=== PATIENT | male | born 1940 | race Caucasian/White ===

== ENCOUNTER → 2018-09-02 | Outpatient (CLI) | payer MEDICARE ==
--- NOTE | 2018-09-02 14:58 | Diagnostic Imaging Report ---
CLINICAL INDICATION: Patient with neck pain, stiffness, headache and pain behind left ear and travels down left side of neck. EXAM: MRI of the cervical spine performed without IV contrast. Sequences include sagittal T1, sagittal T2, sagittal stir, and axial T2 sequences. COMPARISON: None. FINDINGS: Cervical spine has normal alignment with no fracture. There is normal craniocervical and anterior atlanto-odontoid alignment. Cervical spinal cord has normal anatomic appearance with no abnormal cord signal. Limited visualization of the posterior fossa is unremarkable. There is no paraspinal soft tissue abnormality. There are mildly hypertrophic spurs involving the cervical spine. C1-C2: There are small degenerative spurs involving the atlantoodontoid interval anteriorly. There is no significant central canal narrowing. C2-C3: There is a small posterior disc protrusion/herniation. There is no significant central spinal canal or neural foramen narrowing. C3-C4: There is minimal ligamentum flavum buckling, moderate left facet arthropathy and mild right facet arthropathy. There is no significant central canal narrowing. There is mild to moderate left neural foramen narrowing and no significant right neural foramen narrowing. C4-C5: There is mild diffuse disc bulge and mild facet arthropathy. There is a small right uncinate spur with at least moderate right neural foramen narrowing and no significant left neural foramen narrowing. There is no significant central canal narrowing. C5-C6: Grossly 1-2 mm of Grade 1 anterolisthesis of C5 on C6. There is moderate to severe right facet arthropathy/hypertrophy and mild left facet arthropathy. There is moderate to severe right neural foramen narrowing and no significant left neural foramen narrowing. There is no significant central canal narrowing. C6-C7: There is 2-3 mm of Grade 1 retrolisthesis of C6 on C7. There is a diffuse disc bulge with moderate loss of intervertebral disc height, bilateral facet arthropathy and ligamentum flavum buckling. There is mild central canal narrowing. There is severe right neural foramen narrowing and severe left neural foramen narrowing. C7-T1: This is moderate to severe right facet arthropathy/hypertrophy and moderate left facet arthropathy. There is mild bilateral neural foramen narrowing (right side more than the left). There is no significant central canal narrowing. 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 2: There is moderate to severe multilevel neural foramen narrowing. 3: There is Grade 1 anterolisthesis of C5 on C6 and Grade 1 retrolisthesis of C6 on C7. Dictated by: Dictated on workstation # [id number]
== END ==
LOC: RAD 13:55
PROVIDERS: ATTEND Nurse Practitioner Family
DX: M50.30 Other cervical disc degeneration, unspecified cervical region (principal); M48.02 Spinal stenosis, cervical region; M43.12 Spondylolisthesis, cervical region
CPT/HCPCS: 72141

== ENCOUNTER 2021-10-02 10:42 | Emergency (ER) | payer MEDICARE ==
[~2021-10-02] VITALS: Ht 175.2 cm; Wt 57.6 kg
[2021-10-02] MEDS ORDERED: MUPI1OIN6 TP (12:02)
--- NOTE | 2021-10-02 12:02 | ED Integumentary General ---
General Chief Complaint: Skin/Wound Problems Stated Complaint: WOUND CHECK Nursing Triage Note: Patient presents to the ED with c/o wound infection. Reports that he had a quadrouple bipass on September 05 and when he went to do follow up found that he had an infection in his right leg where the vein had been harvested. Was started on Keflex last Saturday but doesn't think there has been any improvement in the wound. Source: patient, family () Exam Limitations: no limitations History of Present Illness Date Seen by Provider: Oct 02, 2021 Time Seen by Provider: 11:40 Initial Comments Patient is an 80-year-old male status post coronary artery bypass grafting 1 month ago who presents to the emergency department with a chief complaint of concern for a "stitch abscess" just inside his right knee where he had a vein graft taken. Patient saw his provider last Saturday and was placed on some Keflex but the area continues to be a little bit red. Its not draining, it is a little tender. He has had no fever. States he still has a little fatigue post bypass surgery. Has been taking Keflex daily. He states a culture was not taken of the wound when the stitch was removed a week ago. No other complaints of recent illness or injury. All other review of systems reviewed and negative except as stated. Timing/Duration: week Severity: mild Location: extremities Possible Cause: other (stitch abscess) Associated Symptoms: denies symptoms Allergies and Home Medications Allergies Coded Allergies: Penicillins (Verified Allergy, Unknown, 10/02/21) Patient Home Medication List Home Medication List Reviewed: Yes Review of Systems Review of Systems Constitutional: see HPI EENTM: no symptoms reported Respiratory: no symptoms reported Cardiovascular: no symptoms reported Gastrointestinal: no symptoms reported Musculoskeletal: no symptoms reported Skin: other (wound) Past Pxxqnqs-Jhtwrd-Lvvcho Hx Patient Social History Tobacco Use?: No Substance use?: No Alcohol Use?: No Pt feels they are or have been: No Immunizations Up To Date First/Initial COVID19 Vaccinat: Yes Second COVID19 Vaccination Héctor: Yes COVID19 Vaccine Horse Shoer: Aminah Past Medical History Surgery/Hospitalization HX: CABAG; Neuropathy; High cholesterol; Hypothyroidism; CAD Physical Exam Vital Signs Vital Signs - First Documented 10/02/21 10:45 Temp 36.5 Pulse 85 Resp 18 B/P (MAP) 117/68 (84) Pulse Ox 97 O2 Delivery Room Air Capillary Refill : Less Than 3 Seconds General Appearance: WD/WN, no apparent distress HEENT: PERRL/EOMI Neck: full range of motion Cardiovascular: regular rate, rhythm Respiratory: no respiratory distress, no accessory muscle use Extremities: normal range of motion, no pedal edema Neurologic/Psychiatric: alert, normal mood/affect, oriented x 3 Skin: other (Small area of erythema approximately 1-1/2 cm in diameter just distal to the right knee on the medial aspect. There is a cavitary lesion with a little bit of purulence at the base. Mildly tender. I attempted to debride some of the purulent tissue. A little bit was removed. A culture was taken of the wound. No proximal lymphangitic streaking is noted. It is not swollen.) Progress/Results/Core Measures Results/Orders Vital Signs/I&O 10/02/21 10:45 Temp 36.5 Pulse 85 Resp 18 B/P (MAP) 117/68 (84) Pulse Ox 97 O2 Delivery Room Air Blood Pressure Mean: 84 Departure Impression Primary Impression: Postoperative stitch abscess Disposition: 01 HOME, SELF-CARE Condition: Stable Departure-Patient Inst. Decision time for Depature: 12:00 Referrals: MARGARET SALINAS MD (PCP) Primary Care Physician Patient Instructions: Wound Care (DC) Add. Discharge Instructions: You can soak the wound once a day for 10 to 20 minutes. Apply mupirocin/Bactroban ointment twice daily over the wound and a dry dres sing. Finish off your Keflex as prescribed. If the wound becomes more painful, swollen, red or you have streaking from the wound it needs to be seen again by either the emergency department or your primary care doctor. The culture results will be back in about 2 or 3 days and we will notify you if we need to change her antibiotics at that time as well. Scripts Mupirocin (Mupirocin) 2 % Oin.pf.papa 1 GM TP BID for 10 Days, #1 TUBE apply to wound beside right knee Prov: JJ CAMARA MD 10/02/21 JJ CAMARA MD Oct 02, 2021 12:02
[2021-10-02 12:10] VITALS: BP 126/63
== END 2021-10-02 12:10 | disposition home or self-care (01) ==
LOC: EDUNIT# 10:42 → ER FS 10:43
DX: T81.41XA Infection following a procedure, superficial incisional surgical site, initial encounter (principal); Z88.0 Allergy status to penicillin
CPT/HCPCS: 99281